=== PATIENT | male | born 1990 | race Caucasian/White ===

== ENCOUNTER 2017-07-26 13:37 | Emergency (ER) | payer OTHER ==
[~2017-07-26] VITALS: Ht 172.7 cm; Wt 83.9 kg
== END 2017-07-26 17:32 | disposition home or self-care (01) ==
LOC: ER 13:37
DX: T78.3XXA Angioneurotic edema, initial encounter (principal); T78.1XXA Other adverse food reactions, not elsewhere classified, initial encounter; X58.XXXA Exposure to other specified factors, initial encounter

== ENCOUNTER 2020-11-17 08:36 | Emergency (ER) | payer OTHER ==
[~2020-11-17] VITALS: Ht 172.7 cm; Wt 83.9 kg
== END 2020-11-17 12:09 | disposition home or self-care (01) ==
LOC: ER 08:36
DX: K52.9 Noninfective gastroenteritis and colitis, unspecified (principal)

== ENCOUNTER 2023-02-27 09:22 | Emergency (ER) | payer OTHER ==
[~2023-02-27] VITALS: Ht 172.7 cm; Wt 81.6 kg
== END 2023-02-27 17:00 | disposition home or self-care (01) ==
LOC: ER 09:22
DX: S89.81XA Other specified injuries of right lower leg, initial encounter (principal); W10.0XXA Fall (on)(from) escalator, initial encounter; Y93.89 Activity, other specified; Y92.89 Other specified places as the place of occurrence of the external cause
CPT/HCPCS: 72040; 72070; 72100; 72170; 73560; 96372; 99284; J1885; J2360

== ENCOUNTER 2023-03-17 02:02 | Emergency (ER) | payer OTHER ==
[~2023-03-17] VITALS: Ht 172.7 cm; Wt 81.6 kg
[2023-03-17] MEDS ORDERED: CENTANY30 GM TOP (05:21)
[2023-03-17] MEDS ORDERED: AMOX-CLAV 875-1 EAC1 PO (05:21)
== END 2023-03-17 05:23 ==
LOC: ER 02:02
DX: S51.851A Open bite of right forearm, initial encounter (principal); W54.0XXA Bitten by dog, initial encounter; Y93.89 Activity, other specified; Y92.89 Other specified places as the place of occurrence of the external cause

== ENCOUNTER 2023-09-02 10:46 | Emergency (ER) | payer OTHER ==
[~2023-09-02] VITALS: Ht 170.2 cm; Wt 83.9 kg
[~2023-09-02 10:46] MED LIST: AMOX-CLAV 875-1 EAC1 PO; CENTANY30 GM TOP
[2023-09-02] MEDS ORDERED: KETOROLAC TROMETHAMINE 15 MG VIAL IV STA (13:40)
[2023-09-02] MEDS ORDERED: METHYLPREDNISOLONE SOD SUCC 40 MG VIAL IV STA (13:41)
[2023-09-02] MEDS ORDERED: ORPHENADRINE CITRATE 30 MG/ML AMPUL IM STA (13:41)
[2023-09-02] MEDS ORDERED: FLAGYL375 MG PO (14:21)
[2023-09-02] MEDS ORDERED: METRONIDAZOLE70 GM VAG (14:21)
[2023-09-02] MEDS ORDERED: ADVIL PM LIQUI1 EACH PO (15:09)
[2023-09-02] MEDS ORDERED: METAXALONE400 MG PO (15:09)
[2023-09-02 16:46] LABS: CALCIUM 9.5 mg/dL (8.5-10.1); CREATININE SERUM 1.11 mg/dL (0.70-1.30); GFR 75.83; POTASSIUM 4.03 mEq/L (3.5-5.1)
[2023-09-02] MEDS ORDERED: DICLOFENAC SODI75 MG PO (18:05)
[2023-09-02] MEDS ORDERED: NORFLEX100MG PO (18:05)
== END 2023-09-02 18:11 | disposition home or self-care (01) ==
LOC: ER 10:47
PROVIDERS: Emergency Medicine
DX: S79.811A Other specified injuries of right hip, initial encounter (principal); W18.39XA Other fall on same level, initial encounter; Y93.89 Activity, other specified; Y92.89 Other specified places as the place of occurrence of the external cause; M54.50 Low back pain, unspecified